=== PATIENT | male | born 1990 | race American Indian/Alaskan Native ===

== ENCOUNTER 2021-12-17 13:00 | Emergency (ER) | payer BC ==
[2021-12-17 13:52] LABS: Basophils % (Auto) 0.2 % (0.0-1.8); Eosinophils # (Auto) 0.2 K/mm3 (0.0-0.4); Eosinophils % (Auto) 2.1 % (0.0-4.3); Hematocrit 46.2 % (35.5-45.6); Hemoglobin 15.1 gm/dl (11.8-15.2); Lymphocytes # (Auto) 2.3 K/mm3 (1.2-5.4); Lymphocytes % (Auto) 24.8 % (13.4-35.0); Mean Corpuscular HGB Conc 33 % (32-34); Mean Corpuscular Volume 87 fl (84-94); Monocytes # (Auto) 0.7 K/mm3 (0.0-0.8); Monocytes % (Auto) 7.5 % (0.0-7.3); Platelet Count 193 K/mm3 (140-440); Red Blood Count 5.33 M/mm3 (3.65-5.03); Red Cell Distribution Width 14.6 % (13.2-15.2)
--- NOTE | 2021-12-17 14:00 | Emergency Department Report ---
ED Chest Pain HPI - General Stated Complaint: CHEST PAIN Time Seen by Provider: 12/17/21 13:07 Source: patient, EMS Mode of arrival: Ambulatory Limitations: No Limitations - History of Present Illness Initial Comments: Chief complaint: Chest pain HPI: This is a 28-year-old male with history of cardiomyopathy ejection fraction 45% who presents with chest pain. Patient was evaluated at local urgent care center. EMS was called for transport. He has mild sternal dull chest pain without association with movement or exertion. He denies shortness of breath. Denies palpitation. Denies leg pain. Last year February, patient underwent cardiac stress testing which was negative for ischemia. He also stated that he had dye injected into his arm to check for circulation. He does not have history of coronary artery disease. MD Complaint: chest pain -: Gradual, days(s) (Several days) Onset: during rest Pain Location: substernal Severity: mild Quality: dull Consistency: constant Improves With: nitroglycerin Worsens With: nothing Treatments Prior to Arrival: other (EMS transport from urgent care center) - Related Data Allergies Allergy/AdvReac Type Severity Reaction Status Date / Time No Known Allergies Allergy Verified 12/17/21 14:57 Heart Score - HEART Score History: Slightly suspicious EKG: Non-specific Age: < 45 Risk factors: 1-2 risk factors Troponin: < normal limit HEART Score: 2 - EKG Read Time Time EKG Completed: 15:22 EKG Read Time: 15:22 - Critical Actions Critical Actions: 0-3 pts:0.9-1.7%risk of adverse cardiac event.Candidate for discharge ED Review of Systems ROS: Stated complaint: CHEST PAIN Other details as noted in HPI Comment: All other systems reviewed and negative Constitutional: denies: chills, fever Respiratory: denies: cough, shortness of breath Cardiovascular: chest pain Gastrointestinal: denies: abdominal pain, nausea, vomiting ED Past Medical Hx - Past Medical History Previous Medical History?: Yes Additional medical history: Cardiomyopathy ejection fraction 45% - Surgical History Past Surgical History?: No - Family History Family history: hypertension - Social History Smoking Status: Current Every Day Smoker Substance Use Type: Alcohol ED Physical Exam - General Limitations: No Limitations General appearance: alert, in no apparent distress, other (Steady normal gait, appears comfortable) - Head Head exam: Present: atraumatic, normocephalic - Eye Eye exam: Present: normal appearance - ENT ENT exam: Present: mucous membranes moist - Neck Neck exam: Present: normal inspection, full ROM - Respiratory Respiratory exam: Present: normal lung sounds bilaterally. Absent: respiratory distress, wheezes, rales, rhonchi - Cardiovascular Cardiovascular Exam: Present: regular rate, normal rhythm, normal heart sounds. Absent: systolic murmur, diastolic murmur, rubs, gallop - GI/Abdominal GI/Abdominal exam: Present: soft, normal bowel sounds. Absent: distended, tenderness, guarding, rebound - Rectal Rectal exam: Present: deferred - Extremities Exam Extremities exam: Present: normal inspection - Neurological Exam Neurological exam: Present: alert, oriented X3 - Psychiatric Psychiatric exam: Present: normal affect, normal mood - Skin Skin exam: Present: warm, dry, intact, normal color. Absent: rash ED Course Vital Signs 12/17/21 12/17/21 14:56 15:10 Temperature 97.9 F 98.4 F Pulse Rate 86 88 Respiratory 16 16 Rate Blood Pressure 130/82 131/99 [Right] O2 Sat by Pulse 100 99 Oximetry ED Medical Decision Making - Lab Data Result diagrams: 12/17/21 13:26 12/17/21 13:26 - EKG Data -: EKG Interpreted by Wa EKG shows normal: sinus rhythm Rate: normal - EKG Data Interpretation: nonspecific ST-T wave hilda 12/17/21 15:28 EKG obtained 1522 EKG interpreted by wv Normal sinus rhythm rate 90 bpm normal axis prolonged QTC no ST elevation nonspecific T wave pattern - Radiology Data Radiology results: report reviewed Patient Name: ROSIE WORRELL Gender: Male Date of : 1990 Home Phone: Referring Provider: MAITE DELAROSA Organization: [facility] Accession Number: [id number] Requested Date: December 17, 2021 : Report Status: Final Requested Procedure: 1 Procedure Description: XR chest routine 2V Modality: XR Findings Reporting MD: Geovanny Malcolm Dictation Time: December 17, 2021 14:37 Log Haul Operator: Not available Necktie Maker Date: CHEST 2 VIEWS INDICATION / CLINICAL INFORMATION: Chest pain. COMPARISON: None available. FINDINGS: SUPPORT DEVICES: None. HEART / MEDIASTINUM: The heart size and pulmonary vasculature are normal. The aorta is normal in caliber. LUNGS / PLEURA: No significant pulmonary or pleural abnormality. No pneumothorax. ADDITIONAL FINDINGS: No significant additional findings. IMPRESSION: No acute findings. Signer Name: Geovanny Malcolm MD Signed: 12/17/2021 2:37 PM Workstation Name: [id number] - Medical Decision Making Chest pain atypical for ACS. Heart score 2. Chest radiograph negative for infiltrate or pneumothorax. PERC negative for PE. I referred patient to head of drama and internal medicine physician. Patient has had stress testing within the last year Differential diagnosis includes GERD chest wall pain. Patient given reassurance and return precautions. Cardiology referral request faxed to [place] [facility]. Critical care attestation.: If time is entered above; I have spent that time in minutes in the direct care of this critically ill patient, excluding procedure time. ED Disposition Clinical Impression: Cardiomyopathy Disposition: 01 HOME / SELF CARE / HOMELESS Is pt being admited?: No Does the pt Need Aspirin: No Condition: Stable Instructions: Cardiomyopathy, Adult Referrals: DULCE RUBI MD [Staff Physician] - 3-5 Days CHERI CATALAN MD [Staff Physician] - 3-5 Days
[2021-12-17 14:11] LABS: Alanine Aminotransferase 28 units/L (7-56); Albumin 3.8 g/dL (3.9-5); Blood Urea Nitrogen 14 mg/dL (9-20); Calcium 8.3 mg/dL (8.4-10.2); Hemolysis Index 16
[2021-12-17 14:13] LABS: BUN/Creatinine Ratio 20
--- NOTE | 2021-12-17 15:42 | XRay Report ---
CHEST 2 VIEWS INDICATION / CLINICAL INFORMATION: Chest pain. COMPARISON: None available. FINDINGS: SUPPORT DEVICES: None. HEART / MEDIASTINUM: The heart size and pulmonary vasculature are normal. The aorta is normal in flory thu. LUNGS / PLEURA: No significant pulmonary or pleural abnormality. No pneumothorax. ADDITIONAL FINDINGS: No significant additional findings. IMPRESSION: No acute findings. Signer Name: Geovanny Malcolm MD Signed: 12/17/2021 3:37 PM Workstation Name: [id number]
[2021-12-17 17:11] VITALS: BP 140/93
--- NOTE | 2021-12-18 09:59 | Electrocardiograph Report ---
[facility] Test Date: 2021-12-17 Test Time: 15:22:12 Pat Name: ROSIE WORRELL Department: Room: Gender: M Phlebotomy Technician: RRTAI : 1990 Requested By: MAITE DELAROSA Order Number: [id number] Reading MD: Paulino Moreno Measurements Intervals [place] Rate: 87 P: 54 CO: 132 QRS: 12 QRSD: 129 T: 262 QT: 393 QTc: 472 Interpretive Statements Sinus rhythm Nonspecific intraventricular conduction delay Nonspecific T abnormalities, inferior leads Borderline ST elevation, anterior leads No previous ECG available for comparison Electronically Signed On 12-18-2021 9:59:19 EST by Paulino Moreno
== END 2021-12-17 17:09 | disposition home or self-care (01) ==
LOC: ED 13:00
DX: I42.9 Cardiomyopathy, unspecified (principal); I10 Essential (primary) hypertension; F17.200 Nicotine dependence, unspecified, uncomplicated; Z72.89 Other problems related to lifestyle
CPT/HCPCS: 36415; 71046; 80053; 83880; 84484; 85025; 93005; 93010; 99284